=== PATIENT | male | born 1945 ===

== ENCOUNTER 2017-04-27 08:19 | Day surgery (SDC) | payer MEDICARE ==
[2017-04-27 08:42] VITALS: BMI 37.8
--- NOTE | 2017-04-27 10:24 | CP.SDSHP ---
Same Day Surgery H & P - History Proposed Procedure: colonoscopy Pre-Op Diagnosis: Rectal bleeding/fecal occult blood loss. h/o colon polyps ( 2012) - Previous Medical/Surgical History Cardiac: Hypertension Endocrine/Metabolic: Diabetes, Obesity Misc: Anemia, Other (Gerd, Internal hemorrhoids, colon polyps (adenoma 2012), melinda esophagitis, hiatal hernia, hemoglobinopathy) Previous Surgical History: caratacts bilat - Allergies Allergies: Allergies No Known Allergies Allergy (Verified 02/16/17 14:46) - Physical Exam Vital Signs: Vital Signs 04/27/17 08:42 Temperature 97.3 F L Pulse Rate 59 L Respiratory 18 Rate Blood Pressure 130/56 L O2 Sat by Pulse 98 Oximetry Mental Status: Alert & Oriented x3 Neuro: WNL Heart: WNL Lungs: WNL GI: WNL - Impression Impression: rectal bleeding/fecal occult blood loss. h/o colon polyps Pt. Evaluated Today:Candidate for Anesthesia & Procedure: Yes - Date & Time Date: 04/27/17 Time: 10:25 Short Stay Discharge - Short Stay Discharge Admitting Diagnosis/Reason for Visit: GASTROINTESTINAL HEM, H/O COLON POLYPS Disposition: HOME/ ROUTINE
[2017-04-27] MEDS ORDERED: Propofol 10 mg/ml Inj (20 ML) ONE (10:27)
[2017-04-27] MEDS ORDERED: Lactated Ringer's 500 ML IV ONE ×2 (10:28)
[2017-04-27] MEDS ORDERED: Lidocaine Hydrochloride 5 ML INJ ONE (10:28)
[2017-04-27 10:32] VITALS: O2SAT 100
[2017-04-27 14:40] VITALS: BP 108/60; PULSE 63; RESP 16; TEMP 96.9
== END 2017-04-27 12:00 | disposition home or self-care (01) ==
LOC: C.ENDO 08:19
PROVIDERS: ATTEND Internal Medicine Gastroenterology
DX: D64.9 Anemia, unspecified (principal); K64.8 Other hemorrhoids; D12.5 Benign neoplasm of sigmoid colon
CPT/HCPCS: 45388; 82948; 88305; J2704; J7120

== ENCOUNTER 2018-02-06 15:23 | Inpatient (IN) | payer MEDICARE ==
[2018-01-30 09:02] VITALS: BMI 27.6
[~2018-02-06 15:23] MED LIST: Iohexol 240 (50 ml) ONE; Lactated Ringer's 1,000 ML IV ONE; Midazolam 2 MG/2 ML VIAL ONE; Neostigmine Methylsulfate 3mg/3ml Syringe IV ONE; Propofol 10 mg/ml Inj (20 ML) ONE; Rocuronium 10 mg/ml (10 ml) ONE; Succinylcholine Chloride 20 mg/ml Syr (5 ml) IV ONE; ceFAZolin 1 gm in NS 1 GM/100 ML BAG IVPB ONE
--- NOTE | 2018-02-06 15:29 | PCM.SURG1 ---
Surgeon's Initial Post Op Note - Surgeon's Notes Surgeon: Dr. Pizano Premium Card Cancellation Clerk: Dr. Orr PGY2 Type of Anesthesia: General Endo Pre-Operative Diagnosis: Cholelithiasis Operative Findings: See operative dictation Post-Operative Diagnosis: Cholelithiasis Operation Performed: Laparoscopic Cholecystectomy Specimen/Specimens Removed: Gallbladder Estimated Blood Loss: EBL {In ML}: 100 Blood Products Given: N/A Drains Used: Griffin Post-Op Condition: Good Date of Surgery/Procedure: 02/06/18 Time of Surgery/Procedure: 15:28
[2018-02-06] MEDS ORDERED: HYDROmorphone 0.5 mg/0.5 ml ISec IVP PRN (15:39)
[2018-02-06] MEDS ORDERED: HYDROmorphone 1 mg/ml ISec IVP PRN (16:36)
[2018-02-06] MEDS ORDERED: Sodium Chloride 0.9% 1,000 ML IV ONE (19:00)
[2018-02-06 19:42] VITALS: RESP 20
[2018-02-07] MEDS: Sodium Chloride 0.9% 1,000 ML IV SCH ×4 (01:15→21:24)
--- NOTE | 2018-02-07 02:20 | OP ---
PROCEDURE DATE: 02/06/2018 PREOPERATIVE DIAGNOSIS: Cholecystitis and cholelithiasis. POSTOPERATIVE DIAGNOSIS: Cholecystitis and cholelithiasis. PROCEDURE CARRIED OUT: Laparoscopic cholecystectomy with C-arm cholangiogram. SURGEON: Tiburcio Pizano Jr., MD HINGING MACHINE OPERATOR: Dr. Ramírez Orr. ANESTHESIOLOGISTS: Mr. Carbajal and Dr. Oneill. INDICATIONS: The patient is a 72-year-old man with abdominal pain, subsequently found to have gallstones, has history of diabetes. OPERATIVE FINDINGS: The cholangiogram carried out to the cystic duct showed free flow into the duodenum and good visualization of the hepatic radicles. The only technical problem we had is there are some spillage of stones. Mostly all visible ones are retrieved, but there may be smaller stones in the Byrne's pouch, which we could not identify. After we had done this, we then removed and identified the cystic duct and cystic artery, obtained a view of safety, carried out the cholangiogram. We then removed the gallbladder from the field. There was entry into the gallbladder which he tolerated, and there was some spillage of stones. Nonetheless, after this has been done, the major problem was hemostasis on the liver bed, it was fairly oozy. After this has been controlled, we then placed a drain, irrigated this out extensively and removed much fluid as possible. Primary reason for leaving the drain is the large amount of fluid irrigation that was placed and terminated the procedure. Blood loss was 100 mL. Operation carried out, laparoscopic cholecystectomy with C-arm cholangiogram. Tiburcio Pizano Jr., MD cc: Dr. Shelton.
[2018-02-07] MEDS: Lactated Ringer's 1,000 ML IV SCH ×2 (06:16→21:25)
--- NOTE | 2018-02-07 07:51 | CP.PCM.PN ---
Subjective - Date & Time of Evaluation Date of Evaluation: 02/07/18 Time of Evaluation: 07:48 - Subjective Subjective: General Surgery Progress Note for Dr. Pizano This 72M was seen and evaluated this Am at bedside no acute events overnight. Pt reports pain well controlled. Tolerating diet denies nausea vomiting chest pain. Nile put out 40cc serosang overnight. No new complaints at this time. Objective - Vital Signs/Intake and Output Vital Signs (last 24 hours): Temp Pulse Resp BP Pulse Ox 98.1 F 90 20 154/66 H 95 02/07/18 00:16 02/07/18 00:16 02/07/18 00:16 02/07/18 00:16 02/07/18 00:16 Intake and Output: 02/07/18 02/07/18 06:59 18:59 Intake Total 800 Output Total 45 Balance 755 - Medications Medications: Current Medications Docusate Sodium (Colace) 100 mg PO BID [facility] Last Admin: 02/06/18 20:09 Dose: 100 mg Glimepiride (Amaryl) 2 mg PO DAILY [facility] Hydromorphone HCl (Dilaudid) 1 mg IVP Q4H PRN PRN Reason: Pain, severe (8-10) Sodium Chloride (Sodium Chloride 0.9%) 1,000 mls @ 100 mls/hr IV .Q10H [facility] Last Admin: 02/07/18 06:15 Dose: 100 mls/hr Lactated Ringer's (Lactated Ringer's) 1,000 mls @ 100 mls/hr IV .Q10H [facility] Last Admin: 02/07/18 06:16 Dose: Not Given Lisinopril (Zestril) 2.5 mg PO DAILY [facility] Ondansetron HCl (Zofran Inj) 4 mg IVP Q6 PRN PRN Reason: Nausea/Vomiting - Constitutional Appears: Non-toxic, No Acute Distress - Head Exam Head Exam: ATRAUMATIC, NORMOCEPHALIC - Eye Exam Eye Exam: EOMI, Normal appearance - Respiratory Exam Respiratory Exam: NORMAL BREATHING PATTERN - Cardiovascular Exam Cardiovascular Exam: +S1, +S2 - GI/Abdominal Exam GI & Abdominal Exam: Soft. absent: Distended, Firm, Guarding, Rigid, Tenderness Additional comments: Dressing clean dry and intact 40cc serosang in nile overnight - Neurological Exam Neurological Exam: Alert, Awake - Psychiatric Exam Psychiatric exam: Normal Affect, Normal Mood - Skin Skin Exam: Dry, Intact Assessment and Plan - Assessment and Plan (Free Text) Assessment: 72M POD # 2 s/p lap conrado and doing well F/U CBC if normal will D/C drain and discharge patient home today with pain medication and outpatient followup. further recs per Dr. Harinder Orr PGY2
[2018-02-07 08:28] LABS: BASO # 0.1 K/uL (0.0-0.2); BASO % 0.3 % (0.0-2.0); HEMOGLOBIN 9.5 g/dL (12.0-18.0); LYMPH # 2.9 K/uL (1.0-4.3); LYMPH % 8.2 % (20.0-40.0); MEAN CORPUSCULAR HGB CONC 35.4 g/dL (33.0-37.0); MEAN PLATELET VOLUME 9.4 fL (7.2-11.7); MONO # 2.4 K/uL (0.0-0.8); MONO % 6.6 % (0.0-10.0); NEUT # 30.5 K/uL (1.8-7.0); NEUT % 84.9 % (50.0-75.0); NRBC % 0.1 % (0.0-2.0); PLATELET COUNT 250 K/uL (130-400); RBC 3.28 Mil/uL (4.40-5.90); RED CELL DISTRIBUTION WIDTH 16.1 % (11.5-14.5)
[2018-02-07 08:40] LABS: WHITE BLOOD COUNT 35.9 K/uL (4.8-10.8)
[2018-02-07 10:20] LABS: LYMPHOCYTE 8 % (20-40); MONOCYTE 5 % (0-10); NEUTROPHIL 87 % (50-75); TOTAL CELLS COUNTED 100
[2018-02-07 10:24] LABS: ANISOCYTOSIS SLIGHT; HYPOCHROMIC SLIGHT; PLATELET ESTIMATE NORMAL (NORMAL); POLYCHROMIC SLIGHT; TARGET CELLS SLIGHT
[2018-02-07 11:11] LABS: ALBUMIN 3.4 g/dL (3.5-5.0); ALT/SGPT 54 U/L (21-72); AST/SGOT 58 U/L (17-59); BLOOD UREA NITROGEN 17 mg/dL (9-20); CALCIUM 8.3 mg/dl (8.6-10.4); GFR AFRICAN-AMERICAN > 60; GFR NON-AFRICAN AMERICAN > 60
[2018-02-07 17:20] LABS: HEMOGLOBIN 10.1 g/dL (12.0-18.0); MEAN CELL VOLUME 82.8 fL (80.0-94.0); MEAN CORPUSCULAR HEMOGLOBIN 28.9 pg (27.0-31.0); MEAN PLATELET VOLUME 9.2 fL (7.2-11.7); RBC 3.5 Mil/uL (4.40-5.90); RED CELL DISTRIBUTION WIDTH 16.3 % (11.5-14.5); WHITE BLOOD COUNT 35.2 K/uL (4.8-10.8)
[2018-02-08 08:32] LABS: BASO # 0.1 K/uL (0.0-0.2); BASO % 0.3 % (0.0-2.0); EOS # 0.2 K/uL (0.0-0.7); EOS % 0.5 % (0.0-4.0); LYMPH # 9.8 K/uL (1.0-4.3); LYMPH % 31.5 % (20.0-40.0); MEAN CORPUSCULAR HEMOGLOBIN 29.4 pg (27.0-31.0); MEAN CORPUSCULAR HGB CONC 35.8 g/dL (33.0-37.0); MEAN PLATELET VOLUME 9.3 fL (7.2-11.7); MONO # 1.4 K/uL (0.0-0.8); MONO % 4.5 % (0.0-10.0); NEUT # 19.6 K/uL (1.8-7.0); NEUT % 63.2 % (50.0-75.0); RBC 3.39 Mil/uL (4.40-5.90); RED CELL DISTRIBUTION WIDTH 16.4 % (11.5-14.5)
[2018-02-08 08:47] LABS: ALBUMIN 3.6 g/dL (3.5-5.0); ALT/SGPT 45 U/L (21-72); AST/SGOT 50 U/L (17-59); BLOOD UREA NITROGEN 16 mg/dL (9-20); CALCIUM 8.6 mg/dl (8.6-10.4); GFR AFRICAN-AMERICAN > 60; GFR NON-AFRICAN AMERICAN 59
--- NOTE | 2018-02-08 09:55 | CP.PCM.PN ---
Subjective - Date & Time of Evaluation Date of Evaluation: 02/08/18 Time of Evaluation: 09:53 - Subjective Subjective: elevated bilirubin 2.4 elevated wbc 25819 no signs of sepsis eating , ambulatory and with BM will order ct and hida to evaluate for obstruction,leak Objective - Vital Signs/Intake and Output Vital Signs (last 24 hours): Temp Pulse Resp BP Pulse Ox 99.7 F H 106 H 20 156/72 H 95 02/08/18 09:00 02/08/18 09:00 02/08/18 09:00 02/08/18 09:00 02/08/18 09:00 Intake and Output: 02/08/18 02/08/18 06:59 18:59 Output Total 30 Balance -30 - Medications Medications: Current Medications Docusate Sodium (Colace) 100 mg PO BID [facility] Last Admin: 02/08/18 09:31 Dose: 100 mg Glimepiride (Amaryl) 2 mg PO DAILY [facility] Last Admin: 02/08/18 09:31 Dose: 2 mg Hydromorphone HCl (Dilaudid) 1 mg IVP Q4H PRN PRN Reason: Pain, severe (8-10) Lactated Ringer's (Lactated Ringer's) 1,000 mls @ 100 mls/hr IV .Q10H [facility] Last Admin: 02/07/18 21:25 Dose: Not Given Lisinopril (Zestril) 2.5 mg PO DAILY [facility] Last Admin: 02/08/18 09:32 Dose: 2.5 mg Ondansetron HCl (Zofran Inj) 4 mg IVP Q6 PRN PRN Reason: Nausea/Vomiting - Labs Labs: 02/08/18 08:17 02/08/18 08:17
--- NOTE | 2018-02-08 12:17 | NM ---
PROCEDURE: Nuclear Medicine Hepatobiliary Scan HISTORY: elevated bilirubin post lap gb COMPARISON: None available. TECHNIQUE: 6.3 mCi of technetium 99m Mebrofenin was administered intravenously. Planar images of the abdomen were obtained at 5 min intervals to 60 mins. Delayed images were also obtained. FINDINGS: LIVER: Timely and homogenous uptake. Rapid diminution in activity consistent with excretion of the radiopharmaceutical. COMMON BILE DUCT: identified at 10 mins. GALLBLADDER: Not visualized, status post cholecystectomy. . SMALL BOWEL: Identified at 15 mins. No evidence of bile leak. IMPRESSION: Status post cholecystectomy. No evidence of biliary obstruction. No evidence of bile leak.
--- NOTE | 2018-02-08 12:43 | CT ---
PROCEDURE: CT Abdomen and Pelvis without intravenous contrast HISTORY: elevated wbc and bilirubin post op lap gb COMPARISON: None. TECHNIQUE: Without contrast.. Contrast dose: 0 Radiation dose: Total exam DLP = 880.18 mGy-cm. This CT exam was performed using one or more of the following dose reduction techniques: Automated exposure control, adjustment of the mA and/or kV according to patient size, and/or use of iterative reconstruction technique. FINDINGS: LOWER THORAX: Calcified granuloma right lower lobe. Minimal dependent pleural thickening both lower lobes. Bilateral lower lobe subsegmental atelectasis/ linear scar, right greater than left. LIVER: Unremarkable. No gross lesion or ductal dilatation. GALLBLADDER AND BILE DUCTS: Status post laparoscopic cholecystectomy. Surgical clips in gallbladder fossa. Small amount ill-defined soft tissue density in gallbladder fossa consistent with recent surgery. No fluid collection. PANCREAS: Unremarkable. No gross lesion or ductal dilatation. SPLEEN: Status post splenectomy. Calcified surgical sutures in splenic fossa. ADRENALS: Unremarkable. No mass. KIDNEYS AND URETERS: Unremarkable. No hydronephrosis. No solid mass. VASCULATURE: Unremarkable. No aortic aneurysm. BOWEL: Unremarkable. No obstruction. No gross mural thickening. APPENDIX: Unremarkable PERITONEUM: Minimal fluid in Byrne's pouch consistent with recent laparoscopic cholecystectomy. LYMPH NODES: Unremarkable. No enlarged lymph nodes. BLADDER: Unremarkable. REPRODUCTIVE: Normal prostate BONES: No acute fracture. Schmorl's nodes in the superior and inferior endplate of the L4 vertebra. Large inferior endplate Schmorl's node with surrounding sclerosis. No gregor compression deformity. Incidental left iliacus lipoma measuring 1.1 x 2.9 by 5.5 cm. This is seen deep to the left iliacus muscle. OTHER FINDINGS: None. IMPRESSION: Status post laparoscopic cholecystectomy. Postsurgical changes in gallbladder fossa. No fluid collection. No evidence of biliary obstruction. Minimal fluid in right subhepatic space. Additional minor findings as above.
[2018-02-08] MEDS ORDERED: POLYETHYLENE GLYCOL 3350 17 GM/Dose PACKET PO STA (16:22)
[2018-02-08] MEDS: Piperacill/Tazo 3.375gm in Dex 3.375 GM/50 ML BAG IVPB SCH ×2 (17:00→23:07)
[2018-02-08] MEDS ORDERED: POLYETHYLENE GLYCOL 3350 17 GM/Dose PACKET PO ONE (17:48)
[2018-02-08 23:20] VITALS: O2SAT 96
[2018-02-09] MEDS: Piperacill/Tazo 3.375gm in Dex 3.375 GM/50 ML BAG IVPB SCH ×4 (05:00→22:36)
[2018-02-09 08:18] LABS: BASO # 0.2 K/uL (0.0-0.2); BASO % 0.7 % (0.0-2.0); EOS # 0.4 K/uL (0.0-0.7); EOS % 1.7 % (0.0-4.0); HEMOGLOBIN 9.7 g/dL (12.0-18.0); LYMPH # 0.8 K/uL (1.0-4.3); LYMPH % 3.3 % (20.0-40.0); MEAN CELL VOLUME 82.3 fL (80.0-94.0); MEAN CORPUSCULAR HEMOGLOBIN 28.8 pg (27.0-31.0); MEAN PLATELET VOLUME 8.6 fL (7.2-11.7); MONO # 3.5 K/uL (0.0-0.8); MONO % 15.2 % (0.0-10.0); NEUT # 18.1 K/uL (1.8-7.0); NEUT % 79.1 % (50.0-75.0); PLATELET COUNT 222 K/uL (130-400); RBC 3.37 Mil/uL (4.40-5.90); RED CELL DISTRIBUTION WIDTH 15.7 % (11.5-14.5); WHITE BLOOD COUNT 22.9 K/uL (4.8-10.8)
[2018-02-09 08:24] LABS: URINE BILIRUBIN NEGATIVE (NEGATIVE); URINE BLOOD 1+ (NEGATIVE); URINE CLARITY Clear (Clear); URINE COLOR Yellow (YELLOW); URINE GLUCOSE (UA) NORMAL (Normal); URINE LEUKOCYTE ESTERASE NEG Leu/uL (Negative); URINE PROTEIN 1+ mg/dL (NEGATIVE)
--- NOTE | 2018-02-09 08:40 | RAD ---
PROCEDURE: HISTORY: As Above COMPARISON: None TECHNIQUE: Total fluoroscopic time utilized during the procedure: 36 point seconds. Total dose on this 1 she is stating -0.00 mGy . No other information is available to me at this time FINDINGS: Submitted images from the current procedure: 6 Please refer to the physician's notes performing the procedure. IMPRESSION: Less than 1 hour fluoroscopic time utilized during performance of the procedure
[2018-02-09 08:45] LABS: BANDS 1 % (0-2); LYMPHOCYTE 3 % (20-40); MONOCYTE 3 % (0-10); NEUTROPHIL 93 % (50-75); TOTAL CELLS COUNTED 100
[2018-02-09 08:49] LABS: ANISOCYTOSIS SLIGHT; HYPOCHROMIC SLIGHT; PLATELET ESTIMATE NORMAL (NORMAL)
[2018-02-09 08:50] LABS: POLYCHROMIC SLIGHT
[2018-02-09 08:51] LABS: TARGET CELLS MODERATE
--- NOTE | 2018-02-09 11:53 | CP.PCM.PN ---
Subjective - Date & Time of Evaluation Date of Evaluation: 02/09/18 Time of Evaluation: 06:30 - Subjective Subjective: SURGERY NOTE FOR DR. LORENZANA 72M seen and examined at bedside. Patient retained urine, brooks was placed, wbc trending down now to 22 from 31. Objective - Vital Signs/Intake and Output Vital Signs (last 24 hours): Temp Pulse Resp BP Pulse Ox 98.7 F 85 20 150/74 96 02/09/18 08:25 02/09/18 08:25 02/09/18 08:25 02/09/18 08:25 02/09/18 08:25 Intake and Output: 02/09/18 02/09/18 06:59 18:59 Intake Total 810 Output Total 1140 Balance -330 - Medications Medications: Current Medications Docusate Sodium (Colace) 100 mg PO BID [facility] Last Admin: 02/09/18 09:47 Dose: 100 mg Glimepiride (Amaryl) 2 mg PO DAILY [facility] Last Admin: 02/09/18 09:47 Dose: 2 mg Hydromorphone HCl (Dilaudid) 1 mg IVP Q4H PRN PRN Reason: Pain, severe (8-10) Piperacillin Sod/Tazobactam Sod (Zosyn 3.375 Gm Iv Premix) 3.375 gm in 50 mls @ 100 mls/hr IVPB Q6H [facility] PRN Reason: Protocol Last Admin: 02/09/18 10:37 Dose: 100 mls/hr Lisinopril (Zestril) 2.5 mg PO DAILY [facility] Last Admin: 02/09/18 09:47 Dose: 2.5 mg Ondansetron HCl (Zofran Inj) 4 mg IVP Q6 PRN PRN Reason: Nausea/Vomiting Tamsulosin HCl (Flomax) 0.4 mg PO DAILY [facility] Last Admin: 02/09/18 09:47 Dose: 0.4 mg - Labs Labs: 02/09/18 08:01 02/08/18 08:17 - Constitutional Appears: Non-toxic, No Acute Distress - Respiratory Exam Respiratory Exam: Clear to Ausculation Bilateral, NORMAL BREATHING PATTERN - Cardiovascular Exam Cardiovascular Exam: REGULAR RHYTHM, +S1 - GI/Abdominal Exam GI & Abdominal Exam: Soft. absent: Distended, Firm, Guarding, Rigid, Tenderness , Rebound Additional comments: dressing CDI drain slightly cloudy - Neurological Exam Neurological Exam: Alert, Awake Assessment and Plan - Assessment and Plan (Free Text) Assessment: 72M s/p laparoscopic cholecystectomy POD#4 Plan: - CT/HIDA negative for leaks and collections - UA/ Urine culture - continue antibiotics - monitor WBC Further recs discuss with Dr. Harinder Hurtado, PGY2
[2018-02-09 13:30] LABS: ALBUMIN 3.6 g/dL (3.5-5.0); ALT/SGPT 40 U/L (21-72); AST/SGOT 37 U/L (17-59); BLOOD UREA NITROGEN 15 mg/dL (9-20); CALCIUM 8.4 mg/dl (8.6-10.4); GFR AFRICAN-AMERICAN > 60; GFR NON-AFRICAN AMERICAN 59
[2018-02-10] MEDS: Piperacill/Tazo 3.375gm in Dex 3.375 GM/50 ML BAG IVPB SCH ×2 (04:09→11:37)
[2018-02-10 07:11] VITALS: BP 128/68; PULSE 78; TEMP 98.6
[2018-02-10 07:56] LABS: HEMOGLOBIN 9.2 g/dL (12.0-18.0); MEAN CORPUSCULAR HEMOGLOBIN 28.8 pg (27.0-31.0); MEAN CORPUSCULAR HGB CONC 35.1 g/dL (33.0-37.0); MEAN PLATELET VOLUME 8.5 fL (7.2-11.7); PLATELET COUNT 239 K/uL (130-400); RED CELL DISTRIBUTION WIDTH 15.8 % (11.5-14.5); WHITE BLOOD COUNT 16.5 K/uL (4.8-10.8)
[2018-02-10 08:04] LABS: ALB/GLOB RATIO 0.9 (1.0-2.1); ALBUMIN 3.4 g/dL (3.5-5.0); ALT/SGPT 37 U/L (21-72); AST/SGOT 29 U/L (17-59); BLOOD UREA NITROGEN 16 mg/dL (9-20); CALCIUM 8.3 mg/dl (8.6-10.4); GFR AFRICAN-AMERICAN > 60; GFR NON-AFRICAN AMERICAN 59
[2018-02-10 10:17] LABS: LYMPH # 0.7 K/uL (1.0-4.3)
[2018-02-10 10:18] LABS: EOS # 0.5 K/uL (0.0-0.7); MONO # 1.2 K/uL (0.0-0.8)
[2018-02-10 10:19] LABS: EOSINOPHIL 3 % (0-4); LYMPHOCYTE 4 % (20-40); MONOCYTE 8 % (0-10); NEUTROPHIL 85 % (50-75); TOTAL CELLS COUNTED 100
[2018-02-10 10:20] LABS: ANISOCYTOSIS SLIGHT; HYPOCHROMIC SLIGHT; PLATELET ESTIMATE NORMAL (NORMAL); POLYCHROMIC SLIGHT; TARGET CELLS MODERATE
[2018-02-10] MEDS ORDERED: Oxycodone/Acetaminophen 5/325 mg Tab PO PRN (11:29)
--- NOTE | 2018-02-10 13:04 | CP.PCM.DIS ---
Provider - Provider Date of Admission: 02/06/18 18:00 Attending physician: Tiburcio Pizano Jr, MD Time Spent in preparation of Discharge (in minutes): 45 Hospital Course - Lab Results Lab Results: Micro Results 02/09/18 08:10 Urine,Catheterized Urine Culture - Final No Growth (<1,000 CFU/ML) Most Recent Lab Values WBC 16.5 K/uL (4.8-10.8) H 02/10/18 07:47 RBC 3.20 Mil/uL (4.40-5.90) L 02/10/18 07:47 Hgb 9.2 g/dL (12.0-18.0) L 02/10/18 07:47 Hct 26.3 % (35.0-51.0) L 02/10/18 07:47 MCV 82.0 fL (80.0-94.0) 02/10/18 07:47 MCH 28.8 pg (27.0-31.0) 02/10/18 07:47 MCHC 35.1 g/dL (33.0-37.0) 02/10/18 07:47 RDW 15.8 % (11.5-14.5) H 02/10/18 07:47 Plt Count 239 K/uL (130-400) 02/10/18 07:47 MPV 8.5 fL (7.2-11.7) 02/10/18 07:47 Neut % (Auto) 86.0 % (50.0-75.0) H 02/10/18 07:47 Lymph % (Auto) 4.0 % (20.0-40.0) L 02/10/18 07:47 [place] % (Auto) 7.0 % (0.0-10.0) 02/10/18 07:47 Eos % (Auto) 3.0 % (0.0-4.0) 02/10/18 07:47 Baso % (Auto) 0.0 % (0.0-2.0) 02/10/18 07:47 Neut # (Auto) 14.0 K/uL (1.8-7.0) H 02/10/18 07:47 Lymph # (Auto) 0.7 K/uL (1.0-4.3) L 02/10/18 07:47 [place] # (Auto) 1.2 K/uL (0.0-0.8) H 02/10/18 07:47 Eos # (Auto) 0.5 K/uL (0.0-0.7) 02/10/18 07:47 Baso # (Auto) 0.0 K/uL (0.0-0.2) 02/10/18 07:47 Neutrophils % (Manual) 85 % (50-75) H 02/10/18 07:47 Band Neutrophils % 1 % (0-2) 02/09/18 08:01 Lymphocytes % (Manual) 4 % (20-40) L 02/10/18 07:47 Monocytes % (Manual) 8 % (0-10) 02/10/18 07:47 Eosinophils % (Manual) 3 % (0-4) 02/10/18 07:47 Platelet Estimate Normal (NORMAL) 02/10/18 07:47 Polychromasia Slight 02/10/18 07:47 Hypochromasia (manual) Slight 02/10/18 07:47 Anisocytosis (manual) Slight 02/10/18 07:47 Target Cells Moderate 02/10/18 07:47 Sodium 143 mmol/L (132-148) 02/10/18 07:47 Potassium 3.8 mmol/L (3.6-5.2) 02/10/18 07:47 Chloride 109 mmol/L (98-107) H 02/10/18 07:47 Carbon Dioxide 21 mmol/L (22-30) L 02/10/18 07:47 Anion Gap 16 (10-20) 02/10/18 07:47 BUN 16 mg/dL (9-20) 02/10/18 07:47 Creatinine 1.2 mg/dL (0.8-1.5) 02/10/18 07:47 Est GFR ( Amer) > 60 02/10/18 07:47 Est GFR (Non-Af Amer) 59 02/10/18 07:47 POC Glucose (mg/dL) 138 mg/dL (65-110) H 02/10/18 10:58 Random Glucose 139 mg/dL (75-110) H 02/10/18 07:47 Calcium 8.3 mg/dl (8.6-10.4) L 02/10/18 07:47 Phosphorus 4.2 mg/dL (2.5-4.5) 02/10/18 07:47 Magnesium 1.9 mg/dL (1.6-2.3) 02/10/18 07:47 Total Bilirubin 2.2 mg/dL (0.2-1.3) H 02/10/18 07:47 AST 29 U/L (17-59) 02/10/18 07:47 ALT 37 U/L (21-72) 02/10/18 07:47 Alkaline Phosphatase 109 U/L (38-126) 02/10/18 07:47 Total Protein 7.0 g/dL (6.3-8.3) 02/10/18 07:47 Albumin 3.4 g/dL (3.5-5.0) L 02/10/18 07:47 Globulin 3.6 gm/dL (2.2-3.9) 02/10/18 07:47 Albumin/Globulin Ratio 0.9 (1.0-2.1) L 02/10/18 07:47 Urine Color Yellow (YELLOW) 02/09/18 08:10 Urine Clarity Clear (Clear) 02/09/18 08:10 Urine pH 5.0 (5.0-8.0) 02/09/18 08:10 Ur Specific [place] 1.012 (1.003-1.030) 02/09/18 08:10 Urine Protein 1+ mg/dL (NEGATIVE) H 02/09/18 08:10 Urine Glucose (UA) Normal mg/dL (Normal) 02/09/18 08:10 Urine Ketones Negative mg/dL (NEGATIVE) 02/09/18 08:10 Urine Blood 1+ (NEGATIVE) H 02/09/18 08:10 Urine Nitrate Negative (NEGATIVE) 02/09/18 08:10 Urine Bilirubin Negative (NEGATIVE) 02/09/18 08:10 Urine Urobilinogen 4.0 mg/dL (0.2-1.0) 02/09/18 08:10 Ur Leukocyte Esterase Neg [place]/uL (Negative) 02/09/18 08:10 Urine WBC (Auto) 1 /hpf (0-5) 02/09/18 08:10 Urine RBC (Auto) 2 /hpf (0-3) 02/09/18 08:10 - Hospital Course Hospital Course: 72 M w PMH of cholelithiasis came to [facility] for lap conrado. Pt underwent surgery and tolerated it well. Post operatively pt had urinary retention and leukocytosis. Pt was recommended to go home with Wood for his persistent urinary retention but pt refused. Wood is DCed. Pt is advised to come to ED if urinary retention persist. Pt is to follow up at Dr. Pizano's office and Dr. Emmanuel's offic.e Discharge Exam - Head Exam Head Exam: ATRAUMATIC, NORMOCEPHALIC - Eye Exam Eye Exam: EOMI, Normal appearance, PERRL Pupil Exam: NORMAL ACCOMODATION, PERRL - ENT Exam ENT Exam: Mucous Membranes Moist - Neck Exam Neck exam: Full Rom - Respiratory Exam Respiratory Exam: UNREMARKABLE - Cardiovascular Exam Cardiovascular Exam: REGULAR RHYTHM - GI/Abdominal Exam GI & Abdominal Exam: Soft. absent: Distended, Tenderness Additional comments: Abdomen soft. Incision C/D/I. Drain SS minimal output. - Extremities Exam Extremities exam: full ROM - Back Exam Back exam: NORMAL INSPECTION - Neurological Exam Neurological exam: Alert, CN II-XII Intact, Normal Gait, Oriented x3, Reflexes Normal - Psychiatric Exam Psychiatric exam: Normal Affect, Normal Mood - Skin Skin Exam: Dry, Intact, Normal Color, Warm Discharge Plan - Discharge Medications Prescriptions: oxyCODONE/Acetaminophen [Percocet 5/325 mg Tab] 1 ea PO Q4H PRN #10 tab PRN Reason: Pain, Severe (8-10) Sulfamethoxazole/Trimethoprim [Bactrim 400-80 mg Tablet] 1 each PO BID #14 tablet - Follow Up Plan Condition: GOOD Disposition: HOME/ ROUTINE Additional Instructions: Follow up at Dr. Pizano's office in 1-2 weeks for follow up . No heavy lifting for 1 month Low fat diet Come to Dr. Emmanuel's office for BPH, Urinary retention Referrals: Tiburcio Pizano Jr., MD [Staff Provider] - Jeromy Emmanuel MD [Staff Provider] -
== END 2018-02-10 15:07 | disposition home or self-care (01) | DRG 419 ==
LOC: UNDOFXSDCACCOM 15:23 → UNDOEDSDCBED 15:23 → EDSDCBED 15:23 → UNDOFXSDCSVC 15:23 → C.SDS 15:23 → C.9S 15:23 → UNDOENSDCBED 15:23 → C.3T 15:23
PROVIDERS: ADMIT Surgery Vascular Surgery; ATTEND Surgery Vascular Surgery
PROC: BF12YZZ Fluoroscopy of Gallbladder using Other Contrast (ICD-10-PCS; 2018-02-06)
PROC: 0FT44ZZ Resection of Gallbladder, Percutaneous Endoscopic Approach (ICD-10-PCS; principal; 2018-02-06 11:00)
DX: K80.12 Calculus of gallbladder with acute and chronic cholecystitis without obstruction (principal); E11.9 Type 2 diabetes mellitus without complications; N40.1 Benign prostatic hyperplasia with lower urinary tract symptoms; R33.8 Other retention of urine